=== PATIENT | male | born 1995 | race Caucasian/White ===

== ENCOUNTER 2022-09-21 03:13 | Emergency (ER) | payer SELFPAY ==
[2022-09-21] VITALS (16 sets, daily range): BP systolic 107–134; BP diastolic 65–78; PULSE 66–84; RESP 14–99; TEMP 36.6–36.8; O2SAT 96–100
--- NOTE | ~2022-09-21 | XR_ITS ---
Clinical Indication: Shortness of breath PA and lateral views of the chest: Comparison: None Findings: The lungs are clear, without evidence of focal consolidation or pleural effusion. Cardiome diastinal silhouette is within normal limits. Bones and soft tissues are unremarkable. Impression: Normal chest. Reviewed, dictated and finalized at [facility]. Impression: Normal chest.
--- NOTE | 2022-09-21 03:38 | ED.GENADULT ---
HPI - General Adult General Chief complaint: Unspecified Stated complaint: asthma Time Seen by Provider: 09/21/22 03:33 History of Present Illness HPI narrative: 27 year old male history of epilepsy presented with shortness of breath. Per patient, he did cross country driving over the past several days. He also reports drinking some beverage with a lot of caffeine. Shortly after, he began having shortness of breath. He denied history of ashtma, chest pain, fevers/chills, nauesa/vomiting, abdominal pain, sick contacts. Past Medical History: epilepsy Medications: denied Allergies: no known drug allergies Related Data Home Medications Medication Instructions Recorded Confirmed No Home Medications 09/21/22 09/21/22 Allergies Allergy/AdvReac Type Severity Reaction Status Date / Time No Known Allergies Allergy Verified 09/21/22 03:50 Review of Systems Review of Systems: See HPI Exam Narrative: General: Alert, calm and cooperative, no acute distress, phonating, sitting comfortably during visit HEENT: Pupils equal round and reactive to light, extra ocular movements intact, no conjunctival injection, head atraumatic, neck supple without meningismus Cardiovascular: Regular rate and rhythm, no visible jugular venous distension Respiratory: Lungs clear to auscultation bilaterally, no wheezing/rales/rhonchi, breathing comfortably, full sentences Abdominal: soft, non-tender, non-distended, no guarding, no rebound/peritoneal signs, no costovertebral tenderness to palpation Back: no midline tenderness to palpation, no step offs Extremities: No edema, palpable peripheral pulses, warm, well perfused, no tenderness to bilateral calves Neurological: Alert, moving all extremities symmetrically, ambulating without deficit Course Reevaluation(s) Reevaluation #1: Patient reassessed; reporting resolution of all symptoms. Physical exam benign, sitting comfortably, vitals stable. Date: 09/21/22 Time: 05:08 Vital Signs Vital signs: Vital Signs Temperature 98.2 F 09/21/22 03:16 Pulse Rate 75 09/21/22 03:16 Respiratory Rate 20 09/21/22 03:16 Blood Pressure 134/72 09/21/22 03:16 Pulse Oximetry 100 09/21/22 03:16 Oxygen Delivery Room Air 09/21/22 03:16 Temperature 97.8 F 09/21/22 03:33 Pulse Rate 74 09/21/22 05:01 Respiratory Rate 16 09/21/22 05:01 Blood Pressure 107/65 09/21/22 05:30 Pulse Oximetry 98 09/21/22 06:00 Oxygen Delivery Room Air 09/21/22 03:16 Medical Decision Making [facility] Narrative Medical decision making narrative: 27 year old male presented with acute onset shortness of breath. Physical exam benign, no respiratory distress, lungs clear, sitting comfortably, vitals stable. Differential diagnosis includes but not limited to: asthma exacerbation vs PE vs Pneumonia vs ACS. CXR clear. Patient given nebulized albuterol, prednisone, and magnesium with resolution of symptoms. Blood work reviewed, noted to be unremarkable. Physical exam benign, breathing comfortably, vitals stable. The patient tolerated oral intake, is alert and oriented, speaking with clear speech, ambulated with steady gait, and has remained hemodynamically stable throughout the ED visit. Findings on imaging communicated to patient and counseled to follow up with primary care provider. Has close follow up with primary care provider. Areas of diagnostic uncertainty discussed and strict return precautions shared with patient; encouraged to return to the emergency department if symptoms returned or worsened. The patient is safe to be discharged with follow up, provided he abide by the verbalized and written instructions, to which the patient has expressed understanding. Vital Signs Vital Signs: Vital Signs Temperature 98.2 F 09/21/22 03:16 Pulse Rate 75 09/21/22 03:16 Respiratory Rate 20 09/21/22 03:16 Blood Pressure 134/72 09/21/22 03:16 Pulse Oximetry 100 09/21/22 03:16 Oxygen Delivery
[2022-09-21] MEDS: ALBUTEROL SULFATE NEB 2.5 MG/3 ML INH INHALATION (03:45)
[2022-09-21] MEDS: MAGNESIUM SULF 2 GM/WATER 50ML 2 GM/50 ML BAG IVPB (03:53)
[2022-09-21] MEDS: predniSONE 20 MG TABLET 60 MG PO (03:54)
[2022-09-21 03:57] LABS: Basophils Percent Auto 0.4 % (0.2-1.2); Eosinophils Absolute Auto 0.2 K/mm3 (0-0.3); Eosinophils Percent Auto 2.1 % (0-4.4); Hematocrit 39.7 % (42.0-52.0); Hemoglobin 13.5 g/dL (14.0-18.0); Immature Granulocyte Absolute 0.02 K/mm3 (0.00-0.031); Immature Granulocyte Percent A 0.3 % (0-0.5); Lymphocytes Absolute Auto 3.42 K/mm3 (0.9-3.2); Lymphocytes Percent Auto 44.7 % (18.3-44.2); Mean Corpuscular Hemoglobin 33.8 pg (26-34); Mean Corpuscular Volume 99.3 fl (80-100); Mean Platelet Volume 10.3 fl (7.4-10.4); Monocytes Absolute Auto 0.9 K/mm3 (0.1-0.6); Monocytes Percent Auto 11.6 % (2.6-8.5); Neutrophils Absolute Auto 3.1 K/mm3 (1.3-6.7); Neutrophils Percent Auto 40.9 % (45.5-73.1); Platelet Count Result 202 k/mm3 (150-375); Red Cell Distribution Width 13.2 % (11.5-14.5); White Blood Count 7.7 K/mm3 (4.5-10.0)
--- NOTE | 2022-09-21 03:59 | PC.NURSE ---
pt is driving to [place] for a job. pt sts that he has been out MDI and is diminished. pt is axox4, abc are wnl nad. airway is patent,spontaneous and self maintained. pt denies pain. 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 iv placed and is infusing
[2022-09-21 04:08] LABS: Anion Gap 8 mmol/L (8-16); Blood Urea Nitrogen 15 mg/dL (9-20); Calcium 9.1 mg/dL (8.4-10.2); Carbon Dioxide 24 mmol/L (22-30); Chloride 104 mmol/L (98-107); Estimated CRCL calculation 126 ml/min; Estimated Glomerular Filt Rate > 60; Glucose 101 mg/dL (65-110); Potassium 3.4 mmol/L (3.4-5.0); Sodium 136 mmol/L (137-145)
[2022-09-21 04:09] LABS: D Dimer < 0.27 ug/mL (<0.48)
[2022-09-21 04:18] LABS: Troponin I < 0.012 ng/mL (0.000-0.034)
== END 2022-09-21 06:14 | disposition home or self-care (01) ==
PROVIDERS: Emergency Provider Emergency Medicine
DX: R06.02 Shortness of breath (principal); G40.909 Epilepsy, unspecified, not intractable, without status epilepticus
CPT/HCPCS: 36415; 71046; 80048; 84484; 85025; 85380; 94640; 96365; 96366; 99284; J3475; J7512